=== PATIENT | male | born 1975 | race Caucasian/White ===

== ENCOUNTER 2017-05-23 09:14 | Emergency (ER) | payer MEDICAID, OTHER ==
--- NOTE | 2017-05-23 10:24 | UC ---
Lower Extremity/Ankle HPI - HPI Summary HPI Summary: hx of gout in right great toe mt joint---currently has warm worsening pain and swelling in same - History of Current Complaint Chief Complaint: UCLowerExtremity Stated Complaint: RIGHT FOOT COMPLAINT Time Seen by Provider: 05/23/17 10:03 Hx Obtained From: Patient Onset/Duration: Sudden Onset, Lasting Days - 2, Still Present Severity Initially: Moderate Severity Currently: Moderate Pain Intensity: 7 Aggravating Factor(s): Standing, Ambulation Alleviating Factor(s): Rest, Elevation Able to Bear Weight: Yes - with pain - Allergies/Home Medications Allergies/Adverse Reactions: Allergies Allergy/AdvReac Type Severity Reaction Status Date / Time amoxicillin [From Augmentin] Allergy Facial Verified 05/23/17 09:48 Redness/Flushing clavulanic acid Allergy Facial Verified 05/23/17 09:48 [From Augmentin] Redness/Flushing Home Medications: Home Medications Allopurinol TAB* [Zyloprim 100 MG TAB*] 100 mg PO DAILY 05/23/17 [History Confirmed 05/23/17] Furosemide TAB* [Lasix TAB*] 80 mg PO DAILY 05/23/17 [History Confirmed 05/23/17 ] amLODIPine TAB* [Norvasc 5 mg TAB*] 10 mg PO DAILY 05/23/17 [History Confirmed 05/23/17] PMH/Surg Hx/FS Hx/Imm Hx Previously Healthy: No Cardiovascular History: Cardiac Disease, Hypertension, Myocardial Infarction GI/ History: Renal Disease - stage 3 - Surgical History Surgical History: None - Family History Known Family History: Positive: None - Social History Occupation: Employed Full-time Lives: With Family Alcohol Use: None Substance Use Type: None Smoking Status (MU): Smoker, Current Status Unknown Type: Smokeless Tobacco Amount Used/How Often: 2 can per week Length of Time of Smoking/Using Tobacco: started at age 4 Have You Smoked in the Last Year: Yes Review of Systems Constitutional: Negative Skin: Negative Eyes: Negative ENT: Negative Respiratory: Negative Cardiovascular: Negative Gastrointestinal: Negative Genitourinary: Negative Motor: Negative Neurovascular: Negative Musculoskeletal: Arthralgia - right great toe MT joint Neurological: Negative Psychological: Negative Is Patient Immunocompromised?: No All Other Systems Reviewed And Are Negative: Yes Physical Exam Triage Information Reviewed: Yes Appearance: Well-Appearing, Well-Nourished, Pain Distress - moderate Vital Signs: Initial Vital Signs Temp 99.3 F 05/23/17 09:51 Pulse 116 05/23/17 09:51 Resp 18 05/23/17 09:51 BP 165/104 05/23/17 09:51 Pulse Ox 100 05/23/17 09:51 Vital Signs Reviewed: Yes Eye Exam: Normal Eyes: Positive: Conjunctiva Clear ENT Exam: Normal ENT: Positive: Normal ENT inspection, Hearing grossly normal. Negative: Trismus , Muffled voice, Hoarse voice Dental Exam: Normal Neck exam: Normal Neck: Positive: Supple, Nontender, No Lymphadenopathy Respiratory Exam: Normal Respiratory: Positive: Chest non-tender, Lungs clear, No accessory muscle use Cardiovascular Exam: Normal Cardiovascular: Positive: No Murmur, Pulses Normal, Brisk Capillary Refill, Tachycardia Musculoskeletal Exam: Other Musculoskeletal: Positive: Strength Limited @ - right great toe, ROM Limited @ - right great toe, Edema @ - right great toe Neurological Exam: Normal Neurological: Positive: Alert, Muscle Tone Normal Psychological Exam: Normal Skin Exam: Normal Lower Extremity Course/Dx - Course Course Of Treatment: prednisone, elevation--patient refused post op bshoe, cam boot and work note - Differential Dx/Diagnosis Provider Diagnoses: Gout right great toe, hypertension in poor control Discharge - Discharge Plan Condition: Stable Disposition: HOME Prescriptions: predniSONE TAB* [Deltasone TAB*] 30 mg PO DAILY 5 Days #15 tab Patient Education Materials: Low Purine Diet (ED), Gout (ED), Hypertension (ED) Referrals: MARYBETH Guardado [Primary Care Provider] - 1 Week
[2017-05-23 10:39] VITALS: BP 148/99
== END 2017-05-23 10:39 | disposition home or self-care (01) ==
LOC: UCCORT 09:14
DX: M10.9 Gout, unspecified (principal); I10 Essential (primary) hypertension; I25.2 Old myocardial infarction; I51.9 Heart disease, unspecified; F17.220 Nicotine dependence, chewing tobacco, uncomplicated
CPT/HCPCS: 99212; G0463